=== PATIENT | female | born 1970 | race Caucasian/White ===

== ENCOUNTER 2018-10-28 05:47 | Day surgery (SDC) | payer MEDICAID, OTHER ==
[~2018-10-28] VITALS: Ht 157.5 cm; Wt 67.3 kg
[~2018-10-28 05:47] MED LIST: ADVIL; ATOR10TA65 PO; CA+; CIPR500T4 PO; CLARITIN; HYDR-3498 PO; IBUPROFEN; PHEN-538 PO
[2018-10-28 07:10] VITALS: Ht 157.5 cm; Wt 67.3 kg
[2018-10-28] MEDS ORDERED: LIDOCAINE 4% SOLUTION 50 ML BTL ONE (07:44)
[2018-10-28] MEDS ORDERED: FENTAnyl 50 MCG/ML VIAL ONE (08:26)
[2018-10-28] MEDS ORDERED: MIDAZOLAM 1 MG/ML 2 ML INJ ONE ×3 (08:26)
[2018-10-28 08:45] VITALS: BP 101/57; RESP 15
== END 2018-10-28 14:27 | disposition home or self-care (01) ==
LOC: GIL 05:47
PROVIDERS: ATTEND Internal Medicine Gastroenterology
DX: Z12.11 Encounter for screening for malignant neoplasm of colon (principal); K21.0 Gastro-esophageal reflux disease with esophagitis; K29.50 Unspecified chronic gastritis without bleeding; R10.31 Right lower quadrant pain; R10.11 Right upper quadrant pain
CPT/HCPCS: 88305; 88312; 88313; J2250; J3010